=== PATIENT | female | born 1965 | race Caucasian/White ===

== ENCOUNTER → 2017-02-09 | Outpatient (CLI) | payer BC ==
[~2017-02-09] MED LIST: LEVO125T5 PO
--- NOTE | 2017-02-09 17:57 | KCIC ---
Bilateral digital screening mammograms: Reason for examination: Routine screening. Comparison is made to previous studies dated 04/16/2015 and 05/27/2009. The skin and nipples show no abnormalities. No abnormal axillary lymph nodes are seen. The breast parenchyma shows scattered fibroglandular density. (Breast density: Category B.) There are small nodules consistent with intramammary lymph nodes seen bilaterally. There are no new dominant masses, suspicious calcifications or architectural distortions. Impression: No evidence of malignancy. Recommend routine screening. BI-RADS Category 2: Benign. "Our facility is accredited by the [employer] Mammography Program." This patient's information has been entered into a reminder system for the patient to be notified with the results of her examination and a target date for the next mammogram. Electronically signed by: Joycelyn Pablo MD (02/09/2017 5:53 PM)
== END | disposition home or self-care (01) ==
LOC: KCIC MAMMO 14:54
PROVIDERS: ATTEND Nurse Practitioner Family
DX: Z12.31 Encounter for screening mammogram for malignant neoplasm of breast (principal)
CPT/HCPCS: G0202; 77067

== ENCOUNTER 2018-02-17 22:37 | Emergency (ER) | payer BC ==
[2018-02-17] MEDS: IBUPROFEN 600 MG TABLET. PO (23:31)
[2018-02-17] MEDS: CYCLOBENZAPRINE 10 MG TABLET. PO (23:31)
== END 2018-02-17 23:35 | disposition home or self-care (01) ==
LOC: ER 22:37
DX: S00.03XA Contusion of scalp, initial encounter (principal); R22.0 Localized swelling, mass and lump, head; V49.49XA Driver injured in collision with other motor vehicles in traffic accident, initial encounter; Y93.I9 Activity, other involving external motion; Y99.8 Other external cause status; Y92.488 Other paved roadways as the place of occurrence of the external cause
CPT/HCPCS: 99283

== ENCOUNTER → 2019-03-13 | Day surgery (SDC) | payer BC ==
[~2019-03-13] VITALS: Ht 160 cm; Wt 70.0 kg
[~2019-03-13] MED LIST changes: +BUPIVAC MPF-EPI 0.5%-1:200000 30 ML VIAL. ONE; +CHOL10003 PO; +CYCL10TA2 PO; +DESFLURANE 31 TO 60 MINUTES IH ONE; +DEXAMETHASONE SOD PHOS 4 MG/ML VIAL ONE; +DOCU-109 PO; +GLYCOPYRROLATE 1 MG/5 ML VIAL. ONE; +HYDR-3164 PO; +HYDROcodone/APAP 5/325MG 1 TAB TABLET PO ONE; +HYDROmorphone 2 MG/ML VIAL IV PRN; +IBUP-1060 PO; +IV RINGERS,LACTATED 1000ML 1,000 ML IV SCH; +KETOROLAC 30 MG/ML INJ FOR OR. INJ ONE; +LEVO100T5 PO; +LIDOCAINE 1% PF 2 ML VIAL. ID PRN; +LIDOCAINE 2% PF 5 ML VIAL. ONE; +MELO7.5T29 PO; +MORPHINE SULFATE 2 MG/ML VIAL. IV PRN; +MULT-121 PO; +NEOSTIGMINE METHYLSULFATE 5 MG/5 ML SYRINGE. ONE; +ONDANSETRON PF 4 MG/2 ML VIAL. IV PRN; +ONDANSETRON PF 4 MG/2 ML VIAL. ONE; +PHENYLEPHRINE in 0.9% NACL PF 1 MG/10 ML SYRINGE. IV ONE; +PROCHLORPERAZINE 10 MG/2 ML VIAL. IV PRN; +PROPOFOL 20 ML IV ONE; +ROCURONIUM 50 MG/5 ML VIAL. ONE; +SERT25TA PO; +SIMV10TA3 PO; +SUCCINYLCHOLINE 200 MG/10 ML VIAL. ONE; +ceFAZolin 2GM PREMIX 2 GM/50 ML BAG IV ONE; +fentaNYL PF VIAL 100 MCG/2 ML VIAL IV PRN; +fentaNYL PF VIAL 100 MCG/2 ML VIAL ONE
--- NOTE | 2019-03-13 12:08 | PDOC ---
SURGICAL PROGRESS NOTE Subjective Pre-Op Note 53 yo F with RLQ abd wall lipoma and pain, umbilical hernia. TO OR for excisional biopsy of right lower quadrant abdominal wall lipoma, site marked with patient preop. and laparoscopic exploration and umbilical hernia repair. R/R/B/A d/w pt. Risks, including, but not limited to: bleeding, infection, damage to surrounding structures, risk of anesthesia. She appears to understand, her questions are answered and she elects to proceed. Vital Signs Vital Signs Date Time Temp Pulse Resp B/P (MAP) Pulse Ox O2 Delivery O2 Flow Rate FiO2 03/13/19 10:51 98.1 62 18 123/69 96 Room Air 98.1 SONIA DENTON MD Mar 13, 2019 12:08
[2019-03-13 14:46] VITALS: BP 115/63
--- NOTE | 2019-03-13 14:46 | PDOC4 ---
OPERATIVE NOTE Date: Date: Mar 13, 2019 Pre-Op Diagnosis: Umbilical hernia, RLQ abdominal wall lipoma Post-Op Diagnosis: umbilical hernia, spigelian hernia Procedure Performed: Umbilical hernia repair, laparoscopic exploration, spigelian hernia repair Surgeon: Alex Denton Anesthesia Type: GETA plus local Blood Loss: 5 Specimans Obtained: hernia sac x 2 Findings: small umbilical hernia, RLQ spigelian hernia Complications: none Operative Note: After obtaining informed consent, patient was taken to OR, induced under GETA and prepped in the usual fashion. Umbilical hernia identified. Curvilinear incision was made with 11 blade scapel. Hernia sac dissected out to level of fascia and sac was excised with cautery and sent to pathology for evaluation. 5 mm port placed through defect and exploration performed. Viscera was normal in appearance. In the right lower quadrant, c/w preop marking and palpation, a spigelian hernia was identified, without viscera. Transverse incision made ov erlying this using cautery. Hernia sac identified and dissected down to fasica (which appeared to be lateral to rectus and within attenuated fascia). It was approximately 2 cm in diameter. Hernia sac was amputated and sent to pathology. Posterior fascia/peritoneum closed with 0 vicryl. Anterior fascia closed with 0 looped PDS. Skin repaired with 3 0 vicryl and 4 0 monocryl. Port removed without bleeding. Fascia repaired with 0 vicryl in figure eight manner. Skin repaired with 3 0 vicryl and 4 0 monocryl. Dressing placed. Patient tolerated procedure well and sent to PACU in stable condition. All counts correct. SONIA DENTON MD Mar 13, 2019 14:46
--- NOTE | 2019-03-13 17:04 | RAD ---
AP view of the abdomen Clinical indications: Postoperative KUB in the OR. Status post exploratory laparotomy. Hernia repair. All postop counts reported correct. FINDINGS: No radiopaque foreign body is evident. No significant postoperative functional ileus is seen. Mild fecal retention is seen within the right side of the colon. Mild levoscoliosis is seen. IMPRESSION: No radiopaque foreign body. Electronically signed by: Orlando Malave MD (03/13/2019 5:01 PM) [id number]
== END ==
LOC: SURG 10:21
PROVIDERS: ATTEND Surgery
DX: K43.9 Ventral hernia without obstruction or gangrene (principal); K42.9 Umbilical hernia without obstruction or gangrene; D17.1 Benign lipomatous neoplasm of skin and subcutaneous tissue of trunk
CPT/HCPCS: 49652; 74018; A7015; C1769; J0330; J0696; J1100; J1885; J2001; J2370; J2405; J2704; J2710; J3010; J3490; J7030; J7120

== ENCOUNTER → 2019-06-27 | Outpatient (CLI) | payer BC ==
[2019-03-13 14:46] VITALS: BP 115/63
[~2019-06-27] MED LIST changes: -BUPIVAC MPF-EPI 0.5%-1:200000 30 ML VIAL. ONE; -DESFLURANE 31 TO 60 MINUTES IH ONE; -DEXAMETHASONE SOD PHOS 4 MG/ML VIAL ONE; -GLYCOPYRROLATE 1 MG/5 ML VIAL. ONE; -HYDROcodone/APAP 5/325MG 1 TAB TABLET PO ONE; -HYDROmorphone 2 MG/ML VIAL IV PRN; -IV RINGERS,LACTATED 1000ML 1,000 ML IV SCH; -KETOROLAC 30 MG/ML INJ FOR OR. INJ ONE; -LIDOCAINE 1% PF 2 ML VIAL. ID PRN; -LIDOCAINE 2% PF 5 ML VIAL. ONE; -MORPHINE SULFATE 2 MG/ML VIAL. IV PRN; -NEOSTIGMINE METHYLSULFATE 5 MG/5 ML SYRINGE. ONE; -ONDANSETRON PF 4 MG/2 ML VIAL. IV PRN; -ONDANSETRON PF 4 MG/2 ML VIAL. ONE; -PHENYLEPHRINE in 0.9% NACL PF 1 MG/10 ML SYRINGE. IV ONE; -PROCHLORPERAZINE 10 MG/2 ML VIAL. IV PRN; -PROPOFOL 20 ML IV ONE; -ROCURONIUM 50 MG/5 ML VIAL. ONE; +SIMV10TA15 PO; -SIMV10TA3 PO; -SUCCINYLCHOLINE 200 MG/10 ML VIAL. ONE; -ceFAZolin 2GM PREMIX 2 GM/50 ML BAG IV ONE; -fentaNYL PF VIAL 100 MCG/2 ML VIAL IV PRN; -fentaNYL PF VIAL 100 MCG/2 ML VIAL ONE
--- NOTE | 2019-06-27 16:14 | KCIC ---
Carotid doppler ultrasound History: Right visual change Multiple grayscale, color, and duplex spectral analysis waveform sonographic images were acquired of the carotid, subclavian, and vertebral arteries. Comparison: None Findings: RIGHT: PSV cm/sec EDV cm/sec Common carotid artery 82 19 Maximal internal carotid artery 91 39 External carotid artery 68 Vertebral artery 51 ICA/CCA ratio 1.1 LEFT: PSV cm/sec EDV cm/sec Common carotid artery 81 25 Maximum internal carotid artery 172 73 External carotid artery 79 Vertebral artery 36 ICA/CCA ratio 2.1 Velocities used to determine stenosis are known to correlate with NASCET angiographic criteria. There is antegrade flow in the bilateral vertebral arteries. There is tortuosity of the left internal carotid artery. There is scattered plaque of the common carotid arteries as well as the internal and external carotid arteries. Impression: 1. There is velocity elevation of the left internal carotid artery suggestive of 50-69% luminal diameter reduction, no evidence of a hemodynamically significant stenosis. There is scattered plaque bilaterally. Electronically signed by: Seth Ortiz MD (06/27/2019 4:11 PM) [id number]
== END | disposition home or self-care (01) ==
LOC: KCIC US 14:00
PROVIDERS: ATTEND Family Medicine
DX: I65.23 Occlusion and stenosis of bilateral carotid arteries (principal)
CPT/HCPCS: 93880

== ENCOUNTER → 2019-07-23 | Outpatient (CLI) | payer BC ==
[2019-03-13 14:46] VITALS: BP 115/63
--- NOTE | 2019-07-23 10:21 | CARD ---
MR#: [id number] Date of Study: 07/23/2019 Ordering Physician: HECTOR DIEGO, Referring Physician: HECTOR DIEGO Tech: Jeanette Leonardo BILLY APPROVED REPORT EXAM: Two-dimensional and M-mode echocardiogram with Doppler and color Doppler. Other Information Quality : Good INDICATION Amaurosis Fugax 2D DIMENSIONS RVDd2.0 (2.9-3.5cm)Left Atrium(2D)2.6 (1.6-4.0cm) IVSd0.8 (0.7-1.1cm)Aortic Root(2D)2.8 (2.0-3.7cm) LVDd4.4 (3.9-5.9cm)LVOT Diameter1.8 (1.8-2.4cm) PWd0.8 (0.7-1.1cm)LVDs3.4 (2.5-4.0cm) FS (%) 30.0 %SV41.4 ml LVEF(%)60.0 (>50%) Aortic Valve AoV Peak Malcolm.110.6cm/sAoV VTI21.5cm AO Peak GR.4.9mmHgLVOT Peak Malcolm.101.2cm/s LVOT VTI 22.69cmAO Mean GR.3mmHg WILLIAM (VMAX)2.47kw3PYP (VTI)2.75cm2 Mitral Valve MV E Cilcjwvr45.1cm/sMV DECEL [id number] MV A Ikukljlf15.2cm/sMV URD40ci E/A Ratio1.1MVA (PHT)4.10cm2 TDI E/Lateral E'6.4E/Medial E'9.6 Pulmonary Vein S1 Iaggpgud81.6cm/sD2 Brmmxjjv02.6cm/s LEFT VENTRICLE The left ventricle is normal size. There is normal left ventricular wall thickness. The left ventricu lar systolic function is normal and the ejection fraction is within normal range. The Ejection Fracti on is 55-60%. There is normal LV segmental wall motion. The left ventricular diastolic function and f illing is normal for age. RIGHT VENTRICLE The right ventricle is normal size. The right ventricular systolic function is normal. ATRIA The left atrium size is normal. The right atrium size is normal. The interatrial septum is intact wit h no evidence for an atrial septal defect or patent foramen ovale as noted on 2-D or Doppler imaging. AORTIC VALVE The aortic valve is calcified but opens well. Doppler and Color Flow revealed no significant aortic r egurgitation. There is no significant aortic valvular stenosis. MITRAL VALVE The mitral valve is calcified but opens well. There is no evidence of mitral valve prolapse. There is no mitral valve stenosis. Doppler and Color-flow revealed trace mitral regurgitation. TRICUSPID VALVE The tricuspid valve is normal in structure and function. Doppler and Color Flow revealed no tricuspid valve regurgitation noted. There is no tricuspid valve stenosis. PULMONIC VALVE The pulmonic valve is not well visualized. Doppler and Color Flow revealed mild pulmonic valvular reg urgitation. There is no pulmonic valvular stenosis. GREAT VESSELS The aortic root is normal in size. The ascending aorta is normal in size. The IVC is normal in size a nd collapses >50% with inspiration. PERICARDIAL EFFUSION There is no evidence of significant pericardial effusion. Critical Notification Critical Value: No <Conclusion> The left ventricular systolic function is normal and the ejection fraction is within normal range. Th e Ejection Fraction is 55-60%. There is normal LV segmental wall motion. Signed by : Butch De La Cruz, Electronically Approved : 07/23/2019 10:20:55
== END | disposition home or self-care (01) ==
LOC: ECHO 08:45
PROVIDERS: ATTEND Family Medicine
DX: I08.8 Other rheumatic multiple valve diseases (principal); G45.3 Amaurosis fugax
CPT/HCPCS: 93306

== ENCOUNTER → 2021-01-20 | Outpatient (CLI) | payer BC ==
[2019-03-13 14:46] VITALS: BP 115/63
--- NOTE | 2021-01-20 13:07 | KCIC ---
Bilateral digital screening mammograms with 3-D tomosynthesis: Reason for examination: Routine screening. Comparison is made to previous studies dated back to 10/11/2012. Bilateral mammograms in CC and oblique projections were obtained with 2-D imaging and 3-D tomosynthes is imaging on a Siemens Inspiration unit and reviewed on the workstation. Interpretation was made wit h the benefit of CAD. The skin and nipples show no abnormalities. No abnormal axillary lymph nodes are seen. The breast par enchyma shows scattered fatty and fibroglandular density. (Breast density: Category B.) There continu e to be small intramammary lymph nodes in the upper outer quadrants around the 10:00 C position. Ther e is however a new circumscribed nodule at the 9:00 position of the right breast measuring approximat jayme 5.4 mm in size and located approximately 8 cm posterior to the nipple. Further evaluation with ul trasound is recommended. There are no other dominant masses, suspicious calcifications or architectur al distortion. Impression: New 5.4 mm circumscribed nodule at the 9:00 position of the right breast 8 cm posterior to the nipple . Recommend further evaluation with ultrasound. BI-RAD Category 0: Incomplete. Needs additional imaging evaluation. "Our facility is accredited by the [employer] Mammography [employer]." This patient's information has been entered into a reminder system for the patient to be notified wit h the results of her examination and a target date for the next mammogram. Electronically signed by: Joycelyn Pablo MD (01/20/2021 1:05 PM) [id number]
== END ==
LOC: KCIC MAMMO 09:59
PROVIDERS: ATTEND Family Medicine
DX: Z12.31 Encounter for screening mammogram for malignant neoplasm of breast (principal)
CPT/HCPCS: 77063; 77067

== ENCOUNTER → 2021-02-03 | Outpatient (CLI) | payer BC ==
[2019-03-13 14:46] VITALS: BP 115/63
--- NOTE | 2021-02-03 11:15 | KCIC ---
Right breast ultrasound: Reason for examination: Nodular density on screening mammogram. Comparison is made to mammographic exam dated 01/20/2021. Ultrasound examination of the right breast and axilla was performed. At the 9:00 position 6 cm from the nipple, there is a small hypoechoic circumscribed lesion measuring 5.8 mm in greatest dimension which has benign fibrocystic appearance. No other cystic or solid nodul es are seen. No abnormal appearing lymph nodes are seen in the axilla. IMPRESSION: 5.8 mm hypoechoic nodule with a benign fibrocystic appearance. Recommend 6 month follow-up with ultra sound. BI-RADS Category 3: Probably Benign. "Our facility is accredited by the [employer] Mammography Program." This patient's information has been entered into a reminder system for the patient to be notified wit h the results of her examination and a target date for the next mammogram. Electronically signed by: Joycelyn Pablo MD (02/03/2021 11:13 AM) [id number]
== END ==
LOC: KCIC US 08:39
PROVIDERS: ATTEND Family Medicine
DX: N63.10 Unspecified lump in the right breast, unspecified quadrant (principal)
CPT/HCPCS: 76641